=== PATIENT | male | born 1985 | race Caucasian/White ===

== ENCOUNTER 2020-04-15 00:58 | Emergency (ER) | payer OTHER ==
[~2020-04-15 00:58] MED LIST: BYDUREON2 MG SQ; FARXIGA10 MG PO; TOUJEO MAX300 UNIT/1 INJ; ZOFRAN4 MG PO
[2020-04-15 01:27] LABS: HEMOGLOBIN 17.5 gm/dl (14.0-17.5); RED BLOOD COUNT 5.55 M/UL (4.20-5.50); WHITE BLOOD COUNT 15.6 K/UL (4.5-11.0)
== END 2020-04-15 05:25 | disposition short-term general hospital (02) ==
LOC: ER1 00:58
PROVIDERS: Family Medicine
DX: U07.1 COVID-19 (principal); E11.10 Type 2 diabetes mellitus with ketoacidosis without coma
CPT/HCPCS: 36415; 36600; 71045; 80053; 82803; 82962; 83605; 85025; 87040; 93005; 99285; U0002